=== PATIENT | male | born 1985 ===

== ENCOUNTER 2021-02-08 08:07 | Outpatient (REF) | payer MEDICAID, SELFPAY ==
[2021-02-08 14:27] LABS: HCT 42.2 % (40.0-50.0); HGB 13.6 g/dL (13.5-17.5); MCH 28.4 pg (27.0-33.0); MCHC 32.2 % (32.0-36.0); MCV 88.1 fL (80-95); MPV 10.4 fL (8.0-11.0); Platelet Count 288 10^3/uL (130-400); RBC 4.79 10^6/uL (4.36-5.78); RDW 12.9 % (11.8-14.1); RDW-SD 41.6 fL; WBC 8.21 10^3/uL (4.4-10.8)
[2021-02-08 14:44] LABS: ALT 49 U/L (16-63); AST 23 U/L (15-37); Alkaline Phosphatase 73 U/L (46-116); Anion Gap 6.9 mmol/L (3-11); BUN 19 mg/dL (7-18); Bilirubin, Total 0.3 mg/dL (0.2-1.0); CO2 29.1 mmol/L (21.0-32.0); Calcium 9.1 mg/dL (8.5-10.1); Calculated LDL 114 mg/dL (<100); Chloride 106 mmol/L (98-107); Cholesterol 199 mg/dL (<200); Glucose 103 mg/dL (74-106); HDL Cholesterol 35 mg/dL (40-60); Potassium 4.5 mmol/L (3.5-5.1); Sodium 142 mmol/L (136-145); Total Protein 7.8 g/dL (6.4-8.2); Triglyceride 250 mg/dL (<150)
== END 2021-02-08 08:08 | disposition home or self-care (01) ==
LOC: NCHCN 08:07
PROVIDERS: Visit Provider Nurse Practitioner Family
DX: Z00.00 Encounter for general adult medical examination without abnormal findings (principal)
CPT/HCPCS: 80053; 80061; 85027

== ENCOUNTER 2023-02-20 15:42 | Outpatient (REF) | payer MEDICAID, SELFPAY ==
[2023-02-20 16:55] LABS: Calculated LDL 100 mg/dL (<100); Cholesterol 172 mg/dL (<200); HDL Cholesterol 41 mg/dL (40-60); Triglyceride 155 mg/dL (<150)
== END 2023-02-20 15:43 | disposition home or self-care (01) ==
LOC: NCHCN 15:42
PROVIDERS: Visit Provider Physician Assistant
DX: E78.1 Pure hyperglyceridemia (principal)
CPT/HCPCS: 80061